=== PATIENT | male | born 1970 | race Caucasian/White ===

== ENCOUNTER → 2016-03-27 | Outpatient (REF) ==
[~2016-03-27] MED LIST: BACTRIM DS 8001 TAB PO; CEPHALEXIN500 M1 PO; CIPRO 500MG TA500 MG PO; FLAGYL500 MG PO; NORCO 325 MG-51 TAB PO; PERCOCET 325 MG1 TA2 PO; PHENERGAN 25 TA25 MG PO; PHENERGAN25 MG RC; TYLENOL 325MG325 MG PO
== END ==
LOC: WSOH 08:01
DX: Z00.00 Encounter for general adult medical examination without abnormal findings (principal)